=== PATIENT | female | born 1995 | race Caucasian/White ===

== ENCOUNTER 2016-11-14 10:21 | Emergency (ER) | payer BC ==
[2016-11-14 10:27] VITALS: BP 110/75
--- NOTE | 2016-11-14 10:41 | UC ---
Throat Pain/Nasal Niko HPI - HPI Summary HPI Summary: ST starting 2 days ago, tonsils feel very swollen. No fever or chills, no vomiting, rash, cough, nasal congestion, or ear pain. - History of Current Complaint Chief Complaint: UCGeneralIllness Stated Complaint: SORE THROAT Time Seen by Provider: 11/14/16 10:24 Hx Obtained From: Patient Hx Last Menstrual Period: 10/09/16 ?: No Onset/Duration: Gradual Onset, Lasting Days Severity: Moderate Cough: None Associated Signs & Symptoms: Negative: Sinus Discomfort, Nasal Discharge, Fever , Vomiting, Rash - Allergies/Home Medications Allergies/Adverse Reactions: Allergies Allergy/AdvReac Type Severity Reaction Status Date / Time No Known Allergies Allergy Verified 04/10/15 07:37 PMH/Surg Hx/FS Hx/Imm Hx Previously Healthy: Yes - Surgical History Surgical History: None - Family History Known Family History: Positive: Hypertension - Social History Occupation: Employed Full-time - hotel front desk officer Alcohol Use: None Substance Use Type: None Smoking Status (MU): Never Smoked Tobacco Have You Smoked in the Last Year: No - Immunization History Most Recent Influenza Vaccination: 02/26/15 Most Recent Tetanus Shot: 01/15/15 Most Recent Pneumonia Vaccination: none Review of Systems Constitutional: Negative Skin: Negative Eyes: Negative ENT: Sore Throat Respiratory: Negative Cardiovascular: Negative Gastrointestinal: Negative Genitourinary: Negative Motor: Negative Neurovascular: Negative Musculoskeletal: Negative Neurological: Negative Psychological: Negative All Other Systems Reviewed And Are Negative: Yes Physical Exam Triage Information Reviewed: Yes Appearance: Well-Appearing, No Pain Distress, Well-Nourished Vital Signs: Initial Vital Signs Temp 97.5 F 11/14/16 10:25 Pulse 89 11/14/16 10:25 Resp 20 11/14/16 10:25 BP 110/75 11/14/16 10:25 Pulse Ox 100 11/14/16 10:25 Vital Signs Reviewed: Yes Eye Exam: Normal Eyes: Positive: Conjunctiva Clear ENT: Positive: Hearing grossly normal, Pharyngeal erythema, TMs normal, Tonsillar swelling Dental Exam: Normal Neck exam: Normal Neck: Positive: Supple, Nontender, No Lymphadenopathy Respiratory Exam: Normal Respiratory: Positive: Chest non-tender, Lungs clear, Normal breath sounds, No respiratory distress, No accessory muscle use Cardiovascular Exam: Normal Cardiovascular: Positive: RRR, No Murmur Musculoskeletal Exam: Normal Neurological Exam: Normal Neurological: Positive: Alert Psychological Exam: Normal Skin Exam: Normal Throat Pain/Nasal Course/Dx - Differential Dx/Diagnosis Provider Diagnoses: strep tonsillitis Discharge - Discharge Plan Condition: Stable Disposition: HOME Prescriptions: Amoxicillin PO (*) [Amoxicillin 875 MG (*)] 875 mg PO BID #20 tab Patient Education Materials: Strep Throat (ED) Additional Instructions: Call or return if you have new or worsening symptoms. I expect your pain to go down within the next 2-3 days.
== END 2016-11-14 10:47 | disposition home or self-care (01) ==
LOC: UCEAST 10:21
DX: J03.00 Acute streptococcal tonsillitis, unspecified (principal)
CPT/HCPCS: 87651; 99212; G0463

== ENCOUNTER 2017-03-20 15:44 | Emergency (ER) | payer SELFPAY ==
[2017-03-20] MEDS ORDERED: Azithromycin TAB* 250 MG PO ONE (16:12)
[2017-03-20] MEDS ORDERED: cefTRIAXone VIAL(*) 250 MG VIAL IM ONE (16:12)
[2017-03-20] MEDS ORDERED: Raltegravir* 400 MG TAB PO ONE ×2 (16:28→22:00)
[2017-03-20] MEDS ORDERED: Tenofovir/Emtricitabine(*) TAB PO ONE ×2 (16:28→22:00)
[2017-03-20] MEDS ORDERED: Ondansetron ODT TAB* 4 MG PO ONE (16:30)
[2017-03-20] MEDS ORDERED: Norgestrel/Ethinyl Estrad TAB* 0.5 MG/0.05 MG PO ONE ×2 (16:44)
[2017-03-20 19:51] LABS: Hematocrit 41 % (35-47); Hemoglobin 13.8 g/dl (12.0-16.0); Mean Corpuscular HGB Conc 33 g/dl (31-36); Mean Corpuscular Hemoglobin 27 pg (27-31); Mean Corpuscular Volume 82 fL (80-97); Mean Platelet Volume 9 um3 (7.4-10.4); Red Blood Count 5.05 10^6/ul (4.0-5.4); Red Cell Distribution Width 15 % (10.5-15); White Blood Count 10.7 10^3/ul (3.5-10.8)
[2017-03-20 20:05] LABS: ALT 7 U/L (7-52); AST 12 U/L (13-39); Albumin 4.4 g/dL (3.2-5.2); Alkaline Phosphatase 59 U/L (34-104); Anion Gap 7 mmol/L (2-11); BUN/Creatinine Ratio 16.7 (8-20); Blood Urea Nitrogen 12 mg/dL (6-24); CO2 Carbon Dioxide 26 mmol/L (22-32); Calcium 9.7 mg/dL (8.6-10.3); Chloride 103 mmol/L (101-111); EGFR African American 130.3 (>60); EGFR Non-African American 101.3 (>60); Globulin 2.9 g/dL (2-4); Glucose 100 mg/dL (70-100); Potassium 3.8 mmol/L (3.5-5.0); Sodium 136 mmol/L (133-145); Total Protein 7.3 g/dL (6.4-8.9)
[2017-03-20 20:44] LABS: Rapid HIV INT CONT QC Line Present; Rapid HIV Kit Lot# H046007
[2017-03-20] MEDS ORDERED: Lidocaine 1%* 5 ML VIAL ONE (20:48)
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
[2017-03-20 21:37] VITALS: BP 117/67
[2017-03-24 14:42] LABS: Manual Entry Verification BM
== END 2017-03-20 21:39 | disposition home or self-care (01) ==
LOC: ED 15:44
DX: T76.21XA Adult sexual abuse, suspected, initial encounter (principal)
CPT/HCPCS: 36415; 80053; 83605; 84702; 85025; 86703; 86803; 87340; 99284; A9270-GY; J0696

== ENCOUNTER 2017-08-10 15:30 | Emergency (ER) | payer SELFPAY ==
[2017-08-10 15:56] VITALS: BP 103/69
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
== END 2017-08-10 16:56 | disposition home or self-care (01) ==
LOC: UCEAST 15:30
DX: B86 Scabies (principal)
CPT/HCPCS: 99212; G0463

== ENCOUNTER 2018-07-14 12:24 | Inpatient (IN) | payer OTHER ==
[2018-07-14] MEDS ORDERED: Lactated Ringers 1000 ML Bag* 1,000 ML IV ONE ×2 (12:53→19:29)
[2018-07-14] MEDS ORDERED: Buffered Lidocaine 1% SYRIN* 1 ML/SYRINGE INTRADERM ONE (12:53)
[2018-07-14] MEDS ORDERED: Lactated Ringers 1000 ML Bag* 1,000 ML IV SCH ×3 (13:00→23:00)
[2018-07-14] MEDS ORDERED: Oxytocin in LR* 20 UNITS/1,000 ML BAG IVPB SCH ×2 (13:00→23:00)
--- NOTE | 2018-07-14 13:12 | HP ---
General Information - Reason for Visit IUP at 39 5/7 weeks here for term induction of labor - General Information Maternal Age: 23 Grav: 3 Para: 2 SAB: 0 IEA: 0 Estimated Due Date: 07/16/18 Determined By: LMP Maternal Blood Type and Rh: A Positive - Results this Serology/RPR Result: Non-Reactive Rubella Result: Immune HBsAg Result: Negative HIV Result: Negative GBS Culture Result: Negative Past Medical History Delivery History: Hx Uncomplicated Vaginal Delivery Delivery History Comment: 06/2011 7lb 13 oz female delivered at [facility] by Nicolasa Ball CNM FOB#1 03/2015 6 lb 15 oz female delivered at [facility] by Nicolasa Ball CNM FOB#1 Pertinent Past Medical History: See Records Past Medical History Comment: History of pyelonephritis in 2011 during Genital HSV 1 in 2010 Pertinent Past Surgical History: None Pertinent Family History: Non-Contributory - Antepartal Records Antepartal Records: Reviewed, Complicated by: - Hx HSV1, on BID Valtrex for suppression Review of Systems Constitutional: Comfortable CV Complaint: No Respiratory: Shortness of Breath: No Gastrointestinal: No Nausea/Vomiting, Soft Stool Genitourinary: No Dysuria, No Bleeding, No Leaking Fluid Musculoskeletal: No Complaint, No Epigastric Pain Neurological: No Headache, No Visual Changes Movement: Normal Exam Allergies/Adverse Reactions: Allergies No Known Allergies Allergy (Verified 07/07/18 05:54) B/P 120/75, P:99, RR:18, T:97.1 - Measurements Height: 5 ft 2 in Weight: 176 lb Weight in lbs: [phone] Body Mass Index (BMI): 32.1 Pre- Weight: 144 lb Weight Gained This : 32 lbs and 0 ozs - Exam Breast: Breast Exam Deferred CVA: No CVA Tenderness Extremities: No Edema Heart: Normal Rhythm/Heart Sounds HEENT: No Significant Findings Lungs: Clear Bilaterally Rectal: Rectal Exam Deferred Reflexes: DTR 2+ Thyroid: No Thyromegaly - Abdominal Exam Abdomen Exam: Non-Tender, Fundal Height Consistent with Dates - Ultrasound/Biophysical Profile Ultrasound Status: Not Done Targeted Exam Findings See L&D Outpatient Visit Provider Note for Findings: N/A Estimated Weight: 7.5 lb by joseph'leo Cervical Exam: 2cm, 3cm Effacement: 80% Station: -2 Presenting Part: Vertex Membrane Status: Intact Bleeding/Discharge: None EFM Findings - External Monitor Findings Baseline Heart Rate: 135 External Monitor Findings: Accelerations Present, No Pattern of Variable or Late Decelerations, Variability Moderate, Baseline Stable Contractions: None Assessment/Plan - Assessment 23 yo with IUP at 39 5/7 weeks here for term IOL. VE: 2-3 cm/80%/-2/vertex /intact, Carpio score: 8 - Plan Plan: Induction Plan Comment: PARQ discussion of options for induction, offered IV pitocin. Patient in agreement with plan, questions answered. Encouraged position changes. Will likely want an epidural for pain management. - Date/Time of Admission Date of Admission: 07/14/18 Time of Admission: 12:43
[2018-07-14 13:37] LABS: ABS Basophils 0 10^3/ul (0-0.2); ABS Eosinophils 0 10^3/ul (0-0.6); ABS Lymphocytes 1.5 10^3/ul (1.0-4.8); ABS Monocytes 0.7 10^3/ul (0-0.8); ABS Neutrophils 7.1 10^3/ul (1.5-7.7); ABS Nucleated RBC 0 10^3/ul; Eosinophil % 0.5 %; Hematocrit 35 % (33-41); Hemoglobin 11.7 g/dL (12.0-16.0); Lymphocyte % 16.2 %; Mean Corpuscular HGB Conc 33 g/dL (31-36); Mean Corpuscular Hemoglobin 26 pg (27-31); Mean Corpuscular Volume 78 fL (80-97); Mean Platelet Volume 9.7 fL (7.4-10.4); Nucleated Red Blood Cells % 0.1; Platelet Count 203 10^3/uL (150-450); Red Blood Count 4.53 10^6 /uL (3.70-4.87); Red Cell Distribution Width 16 % (10.5-15); White Blood Count 9.3 10^3/uL (3.5-10.8)
--- NOTE | 2018-07-14 15:15 | PN ---
Progress Note - Progress Note Date of Service: 07/14/18 Note: S: Starting to feel contractions, still feeling comfortable. O: VS: B/P 120/75, T: 97.1, P: 87, RR:18 FHR: baseline 125, moderate variability, +accelerations, no decelerations UCs: 2-3 minutes, lasting 45-90s each Pitocin at 8 mu/min A: VSS Category 1 FHR, no evidence of metabolic acidemia UCs regular, mild Plan: Continue pitocin per protocol Anticipate SVB
--- NOTE | 2018-07-14 17:39 | PN ---
Progress Note - Progress Note Date of Service: 07/14/18 Note: S: Sitting in bed, reports UCs becoming more uncomfortable. FOB at bedside offering support. O: VS: B/P 117/66, P: 77, RR: 18, T: 98.0 FHR 130/moderate variability/+accelerations/no decelerations UCs q3-4 minutes, mild to moderate VE: 3/80/-2. Bloody show. AROM attempted, doubt success A: IUP at 39 5/7 weeks in early active labor Category I FHR, no evidence of metabolic acidemia P: Will continue pitocin per protocol, monitor for s/s ROM Encourage upright position and ambulation
[2018-07-14] MEDS ORDERED: OBEPIDURAL* 250 ML EPIDURAL ONE (19:04)
--- NOTE | 2018-07-14 19:06 | PN ---
Progress Note - Progress Note Date of Service: 07/14/18 Note: S: Pt interested in discussing pain medication options as she's increasingly uncomfortable with UCs. Would like to delay epidural but also feels that they help her and she wants one "eventually" O: BP 117/66 T 98 HR 77 RR 18 FHT: 130bpm. Moderate variability. +Accels. No decels UCs q 2-4 IV pit at 12mu/min VE: 4-5/90%/vtx -1, scant clear fluid present. Suspect slow leak from AROM attempt. Bulging forebag A: IUP at 39-5/7 in early active labor No evidence of metabolic acidemia P: Reviewed options for pain relief. Discussed pt's preferences re: epidural in labor and pros/cons of having placed vs. waiting. After review pt opts for epidural placement. Anesthesia paged for consult
[2018-07-14] MEDS ORDERED: Famotidine TAB* 20 MG PO PRN (19:29)
[2018-07-14] MEDS ORDERED: Phenylephrine 40 MCG/ML SYRINGE IV PUSH PRN (19:29)
[2018-07-14] MEDS ORDERED: Sodium Citrate/Citric Acid* 15 ML UDC PO PRN (19:29)
[2018-07-14] MEDS ORDERED: OBEPIDURAL* 250 ML EPIDURAL SCH (20:00)
--- NOTE | 2018-07-14 21:05 | PN ---
Progress Note - Progress Note Date of Service: 07/14/18 Note: Quick Note At 1999 at bedside to assess pt. She is comfortable s/p epidural. VE: 6-7cm/90%/ vtx -1, AROM forebag to copious clear fluid. FHT Cat I. Continue IV pitocin. Anticipate trial of pushing soon
[2018-07-14] MEDS ORDERED: Witch Hazel PAD* JAR TOPICAL PRN (22:02)
[2018-07-14] MEDS ORDERED: Dibucaine 1% 28.35 GM TUBE PR PRN (22:02)
[2018-07-14] MEDS ORDERED: Acetaminophen TAB* 325 MG PO PRN (22:02)
[2018-07-14] MEDS ORDERED: Glycerin ADULT SUPP PR PRN (22:02)
--- NOTE | 2018-07-14 22:15 | PROCNOTE ---
[facility] OB: Delivery Note - Delivery A Date of : 07/14/18 Time of : 21:44 Morgan Sex: Female Score 1 Minute: 9 Score 5 Minutes: 10 Gestational Age in Weeks and Days at Delivery: 39 Weeks and 5 Days Delivery Method: Spontaneous Vaginal Labor: Induced Did Patient attempt ?: N/A, No Previous Amniotic Fluid: Clear Estimated Blood Loss: 350 Anesthesia/Analgesia: CEI for Labor Anesthesia Comment: Placed by Dr. Vance Delivered By: Shaila Thornton - Nursery Level of Nursery: Regular/Bedside - Perineum Perineal Injury: None/Intact Perineal Repair: None - Events Delivery Events of Note: Pitocin During Labor - Additional Delivery Notes Additional Delivery Notes: Patient admitted at 39 5/7 weeks for term induction. IV Pitocin and amniotomy to clear fluid led to onset of active labor with expected progression to complete. Received labor epidural per preference with excellent relief. Active phase was 3 hours, 7 minutes. She pushed for 3 minutes. of liveborn female. Slow, controlled delivery of head, OA to ADELIA. Shoulders followed easily with maternal push, terminal meconium noted. Morgan vigorous with spontaneous cry, HR>110 beats per minute. Delivered to maternal abdomen. Cord clamped x 2 and cut by father of baby once pulsations ceased. Spontaneous delivery intact placenta, membranes complete. Fundus firm with massage with IV pitocin running, minimal bleeding noted. Careful inspection of perineum revealed no lacerations. No repair needed. KDI=759 ml. At time of note, mother and in stable condition. Planning to breast feed.
[2018-07-15] MEDS: Ibuprofen TAB* 600 MG PO PRN ×4 (02:23→22:40)
[2018-07-15] MEDS: ValACYclovir (*) 500 MG TAB PO SCH ×2 (02:25→17:46)
[2018-07-15 07:46] LABS: ABS Basophils 0.1 10^3/ul (0-0.2); ABS Eosinophils 0.1 10^3/ul (0-0.6); ABS Lymphocytes 2.4 10^3/ul (1.0-4.8); ABS Monocytes 0.7 10^3/ul (0-0.8); ABS Neutrophils 8.5 10^3/ul (1.5-7.7); ABS Nucleated RBC 0 10^3/ul; Eosinophil % 0.9 %; Hematocrit 32 % (33-41); Hemoglobin 10.7 g/dL (12.0-16.0); Lymphocyte % 20.2 %; Mean Corpuscular HGB Conc 34 g/dL (31-36); Mean Corpuscular Hemoglobin 26 pg (27-31); Mean Corpuscular Volume 78 fL (80-97); Mean Platelet Volume 9.7 fL (7.4-10.4); Nucleated Red Blood Cells % 0; Platelet Count 175 10^3/uL (150-450); Red Blood Count 4.11 10^6 /uL (3.70-4.87); Red Cell Distribution Width 16 % (10.5-15); White Blood Count 11.8 10^3/uL (3.5-10.8)
[2018-07-15] MEDS ORDERED: Simethicone TAB* 80 MG TAB.CHEW PO SCH (08:30)
[2018-07-15] MEDS: Docusate CAP* 100 MG PO SCH ×3 (08:59→21:05)
[2018-07-15] MEDS ORDERED: Ferrous Gluconate TAB* 324 MG TAB PO SCH (09:00)
[2018-07-16] MEDS: Ibuprofen TAB* 600 MG PO PRN ×2 (05:01→10:31)
[2018-07-16 08:54] VITALS: BP 117/73
[2018-07-16] MEDS: Docusate CAP* 100 MG PO SCH (09:17)
== END 2018-07-16 11:15 | disposition home or self-care (01) | DRG 560 ==
LOC: MCHOBOUT 12:24 → MCHOB 12:43 → UNDODISIN 07-15 12:05
PROVIDERS: ADMIT Midwife; ATTEND Midwife
PROC: 10E0XZZ Delivery of Products of Conception, External Approach (ICD-10-PCS; principal; 2018-07-14)
PROC: 3E033VJ Introduction of Other Hormone into Peripheral Vein, Percutaneous Approach (ICD-10-PCS; 2018-07-14)
PROC: 10907ZC Drainage of Amniotic Fluid, Therapeutic from Products of Conception, Via Natural or Artificial Opening (ICD-10-PCS; 2018-07-14)
DX: O77.0 Labor and delivery complicated by meconium in amniotic fluid (principal); Z37.0 Single live birth; O99.344 Other mental disorders complicating childbirth; F32.9 Major depressive disorder, single episode, unspecified; Z3A.39 39 weeks gestation of pregnancy
CPT/HCPCS: 36415; 85025; 86850; 86900; 86901; A9270-GY